=== PATIENT | male | born 1955 | race Caucasian/White ===

== ENCOUNTER → 2023-09-28 06:38 | Day surgery (SDC) | payer BC, SELFPAY ==
[2023-09-28 09:22] LABS: Glucose - Point of Care 117 mg/dl (70-99)
== END ==
LOC: GI 06:38
PROVIDERS: ATTENDING PHYSICIAN Internal Medicine Gastroenterology; FAMILY PHYSICIAN Family Medicine
DX: Z12.11 Encounter for screening for malignant neoplasm of colon (principal); D12.0 Benign neoplasm of cecum; D12.3 Benign neoplasm of transverse colon; K63.5 Polyp of colon; K64.0 First degree hemorrhoids; R19.5 Other fecal abnormalities
CPT/HCPCS: 45385; 45380; 88305; 82962